=== PATIENT | female | born 1985 | race Caucasian/White ===

== ENCOUNTER 2019-10-23 14:20 | Inpatient (IN) | payer BC ==
[~2019-10-23] VITALS: Ht 162.6 cm; Wt 107.9 kg
[~2019-10-23 14:20] MED LIST: ASPI-482 PO; CLON1TAB PO; DULO30CA2 PO; HYDR-2765 PO; LEVO75TA90 PO; METO-269 PO; ONDA4TAB7 PO; PANT40TA77 PO; PHEN37.53 PO; RANI-376 PO; TAPE100T7 PO; TRAM50TA PO; TRAZ150T49 PO
[2019-10-23 15:00] VITALS: BP 122/76
[2019-10-23] MEDS: HYDROmorphone 2 MG/ML VIAL IVP PRN ×2 (15:22→19:43)
[2019-10-23] MEDS: diphenhydrAMINE 50 MG/ML VIAL IVP PRN ×2 (15:25→19:42)
[2019-10-23] MEDS ORDERED: METO50TA4 PO (15:45)
[2019-10-23] MEDS ORDERED: LISD70CA5 PO (15:45)
[2019-10-23] MEDS ORDERED: LEXAPRO20 MG PO (15:45)
[2019-10-23] MEDS: POTASSIUM CHLORIDE 20 MEQ TABLET.ER. PO SCH (17:25)
[2019-10-23 19:00] VITALS: BP 127/63
[2019-10-23] MEDS ORDERED: ATORVASTATIN CALCIUM 20 MG TABLET PO SCH (21:00)
[2019-10-23 23:05] VITALS: BP 107/60
[2019-10-24] VITALS (14 sets, daily range): BP systolic 94–119; BP diastolic 56–77
[2019-10-24] MEDS ORDERED: LEVOTHYROXINE 75 MCG TABLET PO SCH (06:00)
[2019-10-24] MEDS ORDERED: PANTOPRAZOLE 40 MG TABLET.DR. PO SCH (07:30)
[2019-10-24] MEDS ORDERED: ASPIRIN ENTERIC COATED 81 MG TABLET.DR. PO SCH (08:00)
[2019-10-24] MEDS ORDERED: ACETAMINOPHEN 325 MG TABLET. PO PRN (08:15)
[2019-10-24] MEDS: diphenhydrAMINE 50 MG/ML VIAL IVP PRN (08:55)
[2019-10-24] MEDS ORDERED: METOPROLOL SUCC 24HR ER 100 MG TAB.ER.24H. PO SCH (09:00)
[2019-10-24] MEDS ORDERED: LIDOCAINE 1% PF 2 ML VIAL. ONE (09:52)
[2019-10-24] MEDS ORDERED: IOHEXOL 300 MG/ML 100ML VIAL. ONE (09:53)
[2019-10-24] MEDS ORDERED: HEPARIN for IV BOLUS 10,000 UNIT/10 ML VIAL. ONE (10:29)
[2019-10-24] MEDS ORDERED: NITROGLYCERIN 200 MCG/2 ML SYRINGE FOR CATH/VASC LAB. ONE (10:29)
[2019-10-24] MEDS ORDERED: VERAPAMIL 5 MG/2 ML VIAL. ONE (10:29)
[2019-10-24] MEDS ORDERED: MIDAZOLAM HCL/PF 2 MG/2 ML VIAL. ONE (10:29)
[2019-10-24] MEDS ORDERED: fentaNYL PF VIAL 100 MCG/2 ML VIAL ONE (10:29)
--- NOTE | 2019-10-24 10:42 | NUR ---
SS following for discharge planning. SS reviewed pt chart and discussed with pt RN. Pt is from home with spouse and is currently on room air. Pt having heart cath today. Discharge plan is to home when ready. SS will continue to follow for discharge planning.
[2019-10-24] MEDS ORDERED: MIDAZOLAM HCL/PF 2 MG/2 ML VIAL. IV ONE (11:00)
[2019-10-24] MEDS ORDERED: VERAPAMIL 5 MG/2 ML VIAL. IART ONE (11:00)
[2019-10-24] MEDS ORDERED: fentaNYL PF VIAL 100 MCG/2 ML VIAL IV ONE (11:00)
[2019-10-24] MEDS ORDERED: HEPARIN for IV BOLUS 10,000 UNIT/10 ML VIAL. IART ONE (11:00)
[2019-10-24] MEDS ORDERED: NITROGLYCERIN 200 MCG/2 ML SYRINGE FOR CATH/VASC LAB. IART ONE (11:00)
[2019-10-24] MEDS ORDERED: IOHEXOL 300 MG/ML 100ML VIAL. IART ONE (11:00)
[2019-10-24] MEDS ORDERED: LIDOCAINE 1% PF 2 ML VIAL. INJ ONE (11:00)
[2019-10-24] MEDS ORDERED: fentaNYL PF VIAL 100 MCG/2 ML VIAL IVP PRN (11:45)
[2019-10-24] MEDS: POTASSIUM CHLORIDE 20 MEQ TABLET.ER. PO SCH (11:49)
--- NOTE | 2019-10-24 13:35 | NUR ---
IP: Notified by [facility] that COVID done prior to transfer is negative.
--- NOTE | 2019-10-24 14:24 | CARD ---
MR#: [id number] Date of Study: 10/24/2019 Ordering Physician: TORIE FAGAN, Referring Physician: TORIE FAGAN, Tech: Adenike Cronin RT(R) APPROVED REPORT Technologist: Adenike Cronin RT(R) Nurse: Augusta Pacheco R.N. Procedure(s) performed: Sedation Time: 33 Minutes Fluoro Time: 2.0 Minutes Dose: 60.96 Gycm2 Contrast: 38mL Omnipaque 300 [facility], Coronary angiography HISTORY : The patient is a 33 year-old female with a history of . INDICATION The indication(s) include : unstable angina . CS Clinical Frailty Scale [facility] Clinical Frailty Scale: Managing Well Heart Failure Heart Failure: No CASE TECHNIQUE During this case, Fluoroscopy and low osmolar contrast were used for imaging. PROCEDURE NARRATIVE Clinical information: 33-year-old woman with a past history of tachybradycardia syndrome and status post pacemaker remotely who presented with unstable angina. She was taken to the catheterization laboratory due to signific ant risk factors and classic unstable anginal symptoms. Informed consent: Written informed consent was obtained from the patient and her family. Procedure details: The right wrist was prepped and draped in usual sterile fashion. A 6 Nigerian sheath was placed in the right radial artery via the Seldinger technique under 2% lidocaine local anesthesia. Next, a J-tip guidewire was used to navigate to the aortic root with the aid of a 6 Nigerian TIG catheter. Diagnosti c angiography and left ventricular end-diastolic pressures were obtained with the catheter. Findings: Aorta 112/68 LVEDP 12 Coronary angiography: Left main is a large-caliber vessel with normal angiographic appearance LAD is a large caliber vessel with normal angiographic appearance Left circumflex is a large caliber nondominant vessel with normal angiographic appearance RCA is a large caliber dominant vessel with normal angiographic appearance Conclusion 1. Normal left-sided filling pressures 2. Normal angiographic appearance of the coronary arteries Recommendations Aggressive Medical Therapy Signed by : Tho Burnham, Electronically Approved : 10/24/2019 14:23:55
[2019-10-24] MEDS ORDERED: IVAB5TAB PO (14:43)
--- NOTE | 2019-10-24 17:21 | NUR ---
Discharge Note: RITA ANGLIN [address] Discharge instructions and discharge home medications reviewed with Patient and a copy given. All questions have been answered and understanding verbalized. The following instructions and handouts were given: chest pain, post cath, and new medication information. Discontinued lines and drains: peripheral IV discontinued. Patient discharged to home via wheelchair accompanied by spouse.
--- NOTE | 2019-10-31 11:23 | SSS ---
ADMIT DATE: HISTORY OF PRESENT ILLNESS: The patient is a 33-year-old female patient who was admitted to the Emergency Room to [facility] with a complaint of chest pain that has been intermittent since March. A week and half prior to admission, the pain became constant, located in her central chest, described as stabbing, pressure associated with nausea and shortness of breath. Denied any diaphoresis. Her pain seems to be worse with deep breathing. No relieving factors. She reported that the pain is different from what she has previously experienced with gastroesophageal reflux disease. She was also dizzy as well as weak. She apparently was evaluated at [facility] Emergency Department and was discharged home as acute myocardial infarction was ruled out. She was seen at [facility] Emergency Room and left against medical advice and she reports REACTION TO REGLAN. The patient has had 3 sets of cardiac enzyme that has ruled myocardial infarction and in consultation with the sucker machine operator, she requested to undergo cardiac catheterization and therefore, she was transferred to [facility] and her cardiac catheterization was essentially unremarkable. She has normal left-sided filling pressure, normal angiographic appearance of the coronary arteries and the sucker machine operator recommended aggressive medical therapy. PAST MEDICAL HISTORY: Significant for paroxysmal supraventricular tachycardia resulting in ablation and permanent pacemaker placement. She has also history of achalasia, fibromyalgia, hypertension, generalized anxiety as well as degenerative arthritis and chronic low back pain. PAST SURGICAL HISTORY: Significant for cholecystectomy, appendectomy, , partial colectomy as well as ablation and permanent pacemaker placement. FAMILY HISTORY: Significant for heart disease in both her mother and father. SOCIAL HISTORY: She is an ex-smoker, quit about a year ago. She does not drink alcohol or use recreational drugs. REVIEW OF SYSTEMS: As per history of present illness. PHYSICAL EXAMINATION: GENERAL: On arrival to the [facility], she looked well and was clearly in no apparent respiratory distress. VITAL SIGNS: Her heart rate was 62, blood pressure was 107/60, temperature was 98.7, respiratory rate was 19, and oxygen saturation was 98%. HEAD, EYES, EARS, NOSE AND THROAT: Showed normocephalic, atraumatic. NECK: Supple. HEART: Showed normal first and second heart sounds. No gallop, rub or murmur. CHEST: Clear to auscultation. No crepitation or rhonchi. ABDOMEN: Distended, soft, nontender. No guarding or rigidity. No organomegaly. All hernial orifice intact. Bowel sounds normal. NEUROLOGIC: She is awake, alert, responding appropriately. All cranial nerves intact. EXTREMITIES: She moves extremities without difficulty. LABORATORY DATA: Showed a white cell count 6000, hemoglobin 13.8, hematocrit 40, MCV 94, and platelet count of 163,000. Her chemistry showed a serum sodium 138, potassium 3.3, chloride 102, bicarbonate 27, anion gap of 9, her BUN of 12, creatinine 0.9, estimated GFR was 72 mL per minute. Her glucose 120, calcium was 8.7, magnesium was 1.9. Total bilirubin, AST, ALT, alkaline phosphatase were normal. Her prothrombin time, INR and APTT are all normal as well as her D-dimer. Urinalysis essentially unremarkable and her tox screen was essentially positive for amphetamine, methamphetamine, but she is on Vyvanse. As I stated, her cardiac catheterization was unremarkable and showed that she has normal left-sided filling pressures and normal angiographic appearance of the coronary arteries and therefore, the patient was discharged home to continue on her Corlanor 5 mg twice a day, citalopram for Lexapro 20 mg once a day, levothyroxine sodium 75 mcg once a day, Vyvanse 70 mg once a day, and Protonix 40 mg once a day. Her metoprolol succinate was stopped and she should follow with Dr. Hernandez at [facility]. KANDI MCKEON MD DR: ELOISA/bryant JOB#: [id number] / [id number]
== END 2019-10-24 17:25 | disposition home or self-care (01) | DRG 287 ==
LOC: 2 NORTH 14:20
PROVIDERS: ADMIT Internal Medicine; ATTEND Internal Medicine
PROC: 4A023N7 Measurement of Cardiac Sampling and Pressure, Left Heart, Percutaneous Approach (ICD-10-PCS; principal; 2019-10-24)
PROC: B2111ZZ Fluoroscopy of Multiple Coronary Arteries using Low Osmolar Contrast (ICD-10-PCS; 2019-10-24)
DX: R07.89 Other chest pain (principal); I47.1 Supraventricular tachycardia; I20.0 Unstable angina; F41.1 Generalized anxiety disorder; I10 Essential (primary) hypertension; I25.2 Old myocardial infarction; M79.7 Fibromyalgia; Z87.891 Personal history of nicotine dependence; Z95.0 Presence of cardiac pacemaker; G89.29 Other chronic pain; M19.90 Unspecified osteoarthritis, unspecified site; Z79.899 Other long term (current) drug therapy; Z88.8 Allergy status to other drugs, medicaments and biological substances; Z88.2 Allergy status to sulfonamides; E03.9 Hypothyroidism, unspecified; F90.9 Attention-deficit hyperactivity disorder, unspecified type; K21.9 Gastro-esophageal reflux disease without esophagitis; F32.9 Major depressive disorder, single episode, unspecified; F41.9 Anxiety disorder, unspecified; G47.33 Obstructive sleep apnea (adult) (pediatric); E78.5 Hyperlipidemia, unspecified
CPT/HCPCS: 93458; 94618; 99152; C1769; C1892; J1170; J1200; J1644; J2060; J2250; J3010; J3490; Q9967; G0378